=== PATIENT | female | born 1980 | race Caucasian/White ===

== ENCOUNTER 2016-06-05 09:22 | Emergency (ER) | payer OTHER ==
[~2016-06-05] VITALS: Ht 165.1 cm; Wt 89.5 kg
[~2016-06-05 09:22] MED LIST: FLONASE16 G1 BOTH NARES; IBUPROFEN800 MG PO; MUCINEX DM ER1 EACH PO; PEN-VEE K,VEET500 MG PO; TESSALON PERLE100 MG PO; VENTOLIN HFA18 GM IH; ZOFRAN ODT4 MG PO
[2016-06-05 09:25] VITALS: BP 149/90
[2016-06-05] MEDS ORDERED: ZANTAC150 MG PO (13:56)
[2016-06-05] MEDS ORDERED: CORTIZONE-10 PL57 GM TP (13:56)
== END 2016-06-05 15:18 | disposition home or self-care (01) ==
LOC: EME 09:22
DX: L40.9 Psoriasis, unspecified (principal); K21.9 Gastro-esophageal reflux disease without esophagitis; Z88.6 Allergy status to analgesic agent
CPT/HCPCS: 87651 90; 99281; 99284

== ENCOUNTER 2016-10-02 11:49 | Emergency (ER) | payer OTHER ==
[~2016-10-02] VITALS: Ht 165.1 cm; Wt 85.5 kg
[~2016-10-02 11:49] MED LIST changes: +CORTIZONE-10 PL57 GM TP; +ZANTAC150 MG PO
[2016-10-02 12:15] VITALS: BP 146/91
[2016-10-02] MEDS ORDERED: BENADRYL50 MG PO (13:12)
== END 2016-10-02 13:22 | disposition home or self-care (01) ==
LOC: EME 11:49
DX: L30.9 Dermatitis, unspecified (principal); Z59.0 Homelessness; Z88.5 Allergy status to narcotic agent; F17.200 Nicotine dependence, unspecified, uncomplicated
CPT/HCPCS: 99281; 99283

== ENCOUNTER 2017-10-02 10:33 | Day surgery (SDC) | payer OTHER ==
[~2017-10-02] VITALS: Ht 165.1 cm; Wt 78.0 kg
[~2017-10-02 10:33] MED LIST changes: +ADDERALL20 MG PO; +ADDERALL30 MG PO; +ASPIRIN81 M2 PO; +BENADRYL50 MG PO; +CATAPRES0.2 MG PO; +DITROPAN XL5 MG PO; +LABETALOL HCL100 MG PO; +METHADOSE10 MG/1 ML PO; +MOTRIN800 MG PO; +WELLBUTRIN SR150 MG PO; +ZANTAC300 MG PO
[2017-10-02 11:09] LABS: HEMATOCRIT 37.5 % (36.0-46.0); HEMOGLOBIN 12.4 G/DL (11.9-15.5); MCH 30.5 PG (29.0-34.0); MCHC 33.1 G/DL (30.0-36.0); MCV 92.1 FL (83-99); PLATELET COUNT 246 K/uL (156-360); RBC DIS.WIDTH-CV 11.9 % (11.8-14.6); RBC DIS.WIDTH-SD 40.2 % (39-53); RED BLOOD COUNT 4.07 M/uL (3.80-5.20); WHITE BLOOD COUNT 6.5 K/uL (4.1-10.2)
[2017-10-02 11:37] VITALS: BP 132/77
== END 2017-10-02 13:00 | disposition home or self-care (01) ==
LOC: SDC 10:33
PROVIDERS: Surgery
PROC: 0WJFXZZ Inspection of Abdominal Wall, External Approach (ICD-10-PCS; principal; 2017-10-02)
DX: K43.2 Incisional hernia without obstruction or gangrene (principal); Z53.09 Procedure and treatment not carried out because of other contraindication; Z32.01 Encounter for pregnancy test, result positive
CPT/HCPCS: 84702; 85027; 87641; 93005; J0690; J1100; J2405; Q0175

== ENCOUNTER 2017-10-03 10:59 | Day surgery (SDC) | payer OTHER ==
[~2017-10-03] VITALS: Ht 165.1 cm; Wt 78.9 kg
[2017-10-03 18:45] VITALS: BP 181/87
[2017-10-03 19:55] VITALS: BP 178/84
== END 2017-10-03 20:00 | disposition home or self-care (01) ==
LOC: SDC → 2SOUTH 16:25 → ENRESERV 16:59 → 2SOUTH 20:00
PROC: 0WUF4JZ Supplement Abdominal Wall with Synthetic Substitute, Percutaneous Endoscopic Approach (ICD-10-PCS; principal; 2017-10-03)
DX: K43.2 Incisional hernia without obstruction or gangrene (principal); K42.9 Umbilical hernia without obstruction or gangrene; K66.0 Peritoneal adhesions (postprocedural) (postinfection); I10 Essential (primary) hypertension; K21.9 Gastro-esophageal reflux disease without esophagitis; F41.8 Other specified anxiety disorders; F17.200 Nicotine dependence, unspecified, uncomplicated
CPT/HCPCS: 84702; 87641; C1781; G0378; J0330; J0690; J1100; J1170; J1885; J2250; J2405; J2710; J2795; J3010; J3475; J7643

== ENCOUNTER 2017-12-21 04:15 | Emergency (ER) | payer OTHER ==
[~2017-12-21] VITALS: Ht 165.1 cm; Wt 70.4 kg
[2017-12-21 04:44] LABS: HEMATOCRIT 41.3 % (36.0-46.0); HEMOGLOBIN 14.3 G/DL (11.9-15.5); MCH 31.2 PG (29.0-34.0); MCHC 34.6 G/DL (30.0-36.0); PLATELET COUNT 287 K/uL (156-360); RBC DIS.WIDTH-CV 12.1 % (11.8-14.6); RBC DIS.WIDTH-SD 39.7 % (39-53); RED BLOOD COUNT 4.59 M/uL (3.80-5.20); WHITE BLOOD COUNT 13.1 K/uL (4.1-10.2)
[2017-12-21 04:45] LABS: AMPHETAMINE PRESUMPTIVE POSITIVE (500 ng/mL); BENZODIAZEPINES NEGATIVE (150 ng/mL); COCAINE PRESUMPTIVE POSITIVE (150 ng/mL); METHAMPHETAMINE NEGATIVE (500 ng/mL); OPIATES (MORPHINE) NEGATIVE (100 ng/mL); PHENCYCLIDINE NEGATIVE (25 ng/mL); THC CANNABINOIDS NEGATIVE (50 ng/mL); TRICYCLIC ANTIDEPRESSANTS NEGATIVE (300 ng/mL)
[2017-12-21 04:46] LABS: BARBITURATES NEGATIVE (200 ng/mL); BUPRENORPHINE NEGATIVE (10 ng/mL); METHADONE PRESUMPTIVE POSITIVE (200 ng/mL); OXYCODONE NEGATIVE (100 ng/mL); PROPOXYPHENE NEGATIVE (300 ng/mL)
[2017-12-21 04:55] LABS: CHLORIDE 109 mEq/L (99-109); POTASSIUM 3.9 mEq/L (3.7-5.4); SODIUM 143 mEq/L (136-147)
[2017-12-21 04:57] LABS: GLUCOSE 94 mg/dL (70-99)
[2017-12-21 05:00] LABS: SERUM ETHYL ALCOHOL 213 mg/dL
[2017-12-21 05:01] LABS: CREATININE 0.8 mg/dL (0.6-1.3); GFR ESTIMATE (CALCULATED) > 59 mL/min/
[2017-12-21 05:02] LABS: UREA NITROGEN (BUN) 9 mg/dL (9-23)
[2017-12-21 05:04] LABS: CREATINE KINASE 357 IU/L (1-294)
[2017-12-21 05:11] LABS: QUANTITATIVE HCG < 4.0 MIU/ML
[2017-12-21] MEDS ORDERED: PREDNISONE10 M1 PO (10:03)
[2017-12-21] MEDS ORDERED: PEPCID20 MG PO (10:03)
[2017-12-21 12:29] VITALS: BP 132/88
== END 2017-12-21 12:32 | disposition home or self-care (01) ==
LOC: EME → EDBD 04:15 → EME 12:32
PROVIDERS: Physician Assistant
DX: F10.129 Alcohol abuse with intoxication, unspecified (principal); F19.10 Other psychoactive substance abuse, uncomplicated; Y90.7 Blood alcohol level of 200-239 mg/100 ml; T78.40XA Allergy, unspecified, initial encounter; R51 Headache; Y09 Assault by unspecified means; W18.30XA Fall on same level, unspecified, initial encounter; F32.9 Major depressive disorder, single episode, unspecified; F41.9 Anxiety disorder, unspecified; I10 Essential (primary) hypertension; F90.9 Attention-deficit hyperactivity disorder, unspecified type; G89.29 Other chronic pain; F43.10 Post-traumatic stress disorder, unspecified; Z88.5 Allergy status to narcotic agent; Z87.442 Personal history of urinary calculi; Z79.82 Long term (current) use of aspirin; F17.200 Nicotine dependence, unspecified, uncomplicated
CPT/HCPCS: 70450; 70486; 80048; 82550; 84702; 84999; 85027; 99281; 99284; G0480; J1100; J1200; J1885; J2765; J7030; S0028